=== PATIENT | male | born 1955 | race Caucasian/White ===

== ENCOUNTER 2017-07-05 23:26 | Inpatient (IN) | payer MEDICAID ==
[~2017-07-05] VITALS: Ht 188 cm; Wt 72.6 kg
[~2017-07-05 23:26] MED LIST: ACET-3161 PO; CIPRO; DOXYCYCLINE; ENEMA; LEVO500T2 PO
[2017-07-05] MEDS ORDERED: FAMOTIDINE 20MG/2ML VIAL IV STA (23:50)
[2017-07-05] MEDS ORDERED: MORPHINE SULFATE 4 MG/ML CPJ (NOT FOR IM USE) IV STA (23:50)
[2017-07-05] MEDS ORDERED: SODIUM CHLORIDE 0.9% 1,000 ML IV ONE (23:50)
[2017-07-05] MEDS ORDERED: ONDANSETRON HCL 4MG/2ML VIAL IV STA (23:50)
[2017-07-06] VITALS (79 sets, daily range): BP systolic 94–143; BP diastolic 57–92
[2017-07-06] MEDS ORDERED: INSULIN REGULAR (HUMULIN R) 300UNITS/3ML IV ONE
[2017-07-06] MEDS ORDERED: SODIUM CHLORIDE 0.9% 1000ML BAG (SEPSIS BOLUS) IV ONE
[2017-07-06] MEDS ORDERED: PANTOPRAZOLE SODIUM 40 MG/VIAL IV STA
[2017-07-06] MEDS ORDERED: FAMOTIDINE 20MG/2ML VIAL IV STA
[2017-07-06] MEDS ORDERED: OCTREOTIDE ACETATE 50 MCG/ML 1ML IV STA
[2017-07-06 00:39] LABS: INR 2.6; PARTIAL THROMBOPLASTIN TIME 24.1 sec (23.4-31.0); PROTHROMBIN TIME 26.5 sec (9.4-11.6)
[2017-07-06 00:42] LABS: BASOPHILS % 0.1 % (0.0-2.0); LYMPHOCYTES % 7.8 % (20.0-50.0); MEAN CORPUSCULAR HEMOGLOBIN 31.9 pg (28.0-32.0); MEAN CORPUSCULAR VOLUME 104.5 fL (80.0-94.0); MEAN PLATELET VOLUME 10.2 fl (7.4-10.4); MONOCYTES % 5.4 % (2.0-8.0); NEUTROPHILS % 86.7 % (40.0-76.0); PLATELET 238 x1000/uL (130-400); RED BLOOD CELL COUNT 1.23 mill/uL (4.7-6.1); RED CELL DISTRIBUTION WIDTH 20.2 % (11.6-14.6)
[2017-07-06 00:44] LABS: HEMATOCRIT. 12.9 % (42.0-52.0)
[2017-07-06 00:45] LABS: HEMOGLOBIN. 3.9 g/dL (14.0-18.0)
[2017-07-06 00:46] LABS: CHLORIDE 96 mEq/L (98-107); ETHANOL BLOOD < 10 mg/dL; TROPONIN I 0.03 ng/mL (0.00-0.04)
[2017-07-06 00:57] LABS: BETA HYDROXYBUTYRATE 5.9 mMol/L (0.0-0.3)
[2017-07-06 01:03] LABS: CARBON DIOXIDE 9 mEq/L (21-32)
[2017-07-06 02:20] LABS: PHOSPHORUS 7.2 mg/dL (2.5-4.9)
[2017-07-06] MEDS ORDERED: INSULIN REGULAR (DRIP) 100 UNITS in SODIUM CHLORIDE 0.9% 99 ML IV PRN ×2 (02:30→13:15)
[2017-07-06] MEDS ORDERED: DIPHENHYDRAMINE 50MG/ML VIAL IV PRN (02:30)
[2017-07-06 02:45] LABS: BG FRACTION INSPIRED OXYGEN 36; BG HCO3 ACT 3.2 mmol/L (22.0-26.0); BG PCO2 9.9 mmHg (35.0-45.0); BG PH 7.122 (7.350-7.450); BG SAMPLE SITE RIGHT BRACHIAL; BG TOTAL HEMOGLOBIN < 4.5 g/dL (12.0-18.0); BG VENT MODE NASAL CANNULA
[2017-07-06] MEDS ORDERED: INSULIN REGULAR (DRIP) 100 UNITS in SODIUM CHLORIDE 0.9% 99 ML IV SCH (03:00)
[2017-07-06] MEDS ORDERED: SODIUM BICARBONATE 8.4% 1 MEQ/ML 50ML SYR IV ONE (03:00)
[2017-07-06 04:06] LABS: PHOSPHORUS 7.1 mg/dL (2.5-4.9)
[2017-07-06] MEDS ORDERED: SODIUM CHLORIDE 0.9% 1,000 ML IV SCH (06:30)
[2017-07-06 10:23] LABS: INR 2.6; PROTHROMBIN TIME 27.3 sec (9.4-11.6)
[2017-07-06 10:41] LABS: PHOSPHORUS 2.1 mg/dL (2.5-4.9)
[2017-07-06] MEDS: PANTOPRAZOLE SODIUM 40 MG/VIAL IV SCH ×2 (10:42→20:33)
[2017-07-06] MEDS ORDERED: DEXT 5%/0.45% NACL 1000ML 1,000 ML IV SCH (12:45)
[2017-07-06] MEDS ORDERED: INSULIN REGULAR (DRIP) 100 UNITS in SODIUM CHLORIDE 0.9% 100 ML IV SCH ×7 (13:18→18:00)
[2017-07-06] MEDS ORDERED: DEXTROSE 50% WATER 50ML SYRINGE IV PRN ×2 (13:30)
[2017-07-06] MEDS ORDERED: MAGNESIUM 2 G PREMIX 50 ML IV NR (14:00)
[2017-07-06] MEDS ORDERED: KCL 20MEQ/100ML PREMIX 100 ML IV NR (14:00)
[2017-07-06] MEDS: BLOOD SUGAR DIAGNOSTIC STRIP TEST SCH ×11 (14:09→23:48)
[2017-07-06 15:04] LABS: BASOPHILS % 0.2 % (0.0-2.0); HEMATOCRIT. 21.7 % (42.0-52.0); LYMPHOCYTES % 8.1 % (20.0-50.0); MEAN CORPUSCULAR HEMOGLOBIN 30.6 pg (28.0-32.0); MEAN CORPUSCULAR VOLUME 87.7 fL (80.0-94.0); MEAN PLATELET VOLUME 9.3 fl (7.4-10.4); MONOCYTES % 3.3 % (2.0-8.0); NEUTROPHILS % 88.4 % (40.0-76.0); PLATELET 108 x1000/uL (130-400); RED BLOOD CELL COUNT 2.47 mill/uL (4.7-6.1)
[2017-07-06 15:15] LABS: PHOSPHORUS 2.5 mg/dL (2.5-4.9)
[2017-07-06 15:19] LABS: HEMOGLOBIN. 7.6 g/dL (14.0-18.0)
[2017-07-06] MEDS: ONDANSETRON HCL 4MG/2ML VIAL IV PRN (15:22)
[2017-07-06] MEDS ORDERED: POTASSIUM PHOS,M-BASIC-D-BASIC 15 MMOL in DEXT 5% WATER 245 ML IV NR (16:00)
[2017-07-06] MEDS ORDERED: SODIUM CHLORIDE 0.9% 10ML VIAL ONE (16:03)
[2017-07-06] MEDS ORDERED: SIMETHICONE 40 MG/0.6 ML 30ML ONE (16:03)
[2017-07-06] MEDS ORDERED: DEXT 5%/0.45% NACL KCL 20MEQ/L 1,000 ML IV SCH (21:00)
[2017-07-06] MEDS ORDERED: SORBITOL 70% SOLN 30ML PO NR (21:30)
[2017-07-07] VITALS (88 sets, daily range): BP systolic 98–149; BP diastolic 49–87
[2017-07-07] MEDS: BLOOD SUGAR DIAGNOSTIC STRIP TEST SCH ×11 (00:30→10:30)
[2017-07-07 05:41] LABS: CARBON DIOXIDE 26 mEq/L (21-32); CHLORIDE 111 mEq/L (98-107); PHOSPHORUS 1.7 mg/dL (2.5-4.9)
[2017-07-07 05:47] LABS: BASOPHILS % 0.1 % (0.0-2.0); EOSINOPHILS % 0.1 % (0.0-5.0); HEMATOCRIT. 26.4 % (42.0-52.0); HEMOGLOBIN. 9.3 g/dL (14.0-18.0); MEAN CORPUSCULAR HEMOGLOBIN 29.7 pg (28.0-32.0); MEAN CORPUSCULAR VOLUME 84.6 fL (80.0-94.0); MEAN PLATELET VOLUME 9.4 fl (7.4-10.4); MONOCYTES % 5.3 % (2.0-8.0); NEUTROPHILS % 85.5 % (40.0-76.0); PLATELET 90 x1000/uL (130-400); RED BLOOD CELL COUNT 3.12 mill/uL (4.7-6.1); RED CELL DISTRIBUTION WIDTH 16.1 % (11.6-14.6)
[2017-07-07] MEDS ORDERED: SORBITOL 70% SOLN 30ML PO NR (06:00)
[2017-07-07] MEDS ORDERED: NA PHOS,M-B/NA PHOS,DI-BA ENEMA 118ML PR NR (08:00)
[2017-07-07] MEDS ORDERED: KCL 20MEQ/100ML PREMIX 100 ML IV ONE ×2 (08:00→09:00)
[2017-07-07] MEDS ORDERED: POTASSIUM CHLORIDE INJ 40 MEQ in SODIUM CHLORIDE 0.9% 250 ML IV NR ×2 (09:00→13:00)
[2017-07-07] MEDS ORDERED: DEXT 5%/0.45% NACL KCL 40MEQ/L 1,000 ML IV SCH (09:00)
[2017-07-07] MEDS: PANTOPRAZOLE SODIUM 40 MG/VIAL IV SCH ×2 (09:19→20:16)
[2017-07-07] MEDS ORDERED: POTASSIUM CHLORIDE 20MEQ/PACKET PO NR (09:30)
[2017-07-07] MEDS ORDERED: FENTANYL CITRATE/PF 50MCG/ML 2ML VIAL ONE (11:18)
[2017-07-07] MEDS ORDERED: MIDAZOLAM HCL 5 MG/5 ML VIAL ONE (11:18)
[2017-07-07] MEDS ORDERED: MIDAZOLAM HCL 2 MG/2 ML VIAL IV PRN (11:37)
[2017-07-07] MEDS ORDERED: POTASSIUM PHOS,M-BASIC-D-BASIC 20 MMOL in DEXT 5% WATER 243.3333 ML IV NR (11:45)
[2017-07-07] MEDS ORDERED: DEXTROSE 50% WATER 50ML SYRINGE IV PRN (13:30)
[2017-07-07] MEDS: SODIUM CHLORIDE 0.9% 1,000 ML IV SCH (14:19)
[2017-07-07] MEDS ORDERED: INSULIN DETEMIR UD 100 UNITS/ML SYR SUBCUT NR (14:30)
[2017-07-07] MEDS ORDERED: OCTREOTIDE ACETATE 50 MCG/ML 1ML IV NR (15:00)
[2017-07-07] MEDS: OCTREOTIDE 1,000 MCG in SODIUM CHLORIDE 0.9% 100 ML IV PRN (15:02)
[2017-07-07] MEDS: INSULIN LISPRO 100 UNITS/ML SUBCUT SCH ×2 (18:05→21:00)
[2017-07-07] MEDS ORDERED: MORPHINE SULFATE 4 MG/ML CPJ (NOT FOR IM USE) IV PRN (20:30)
[2017-07-08] VITALS (20 sets, daily range): BP systolic 100–129; BP diastolic 64–85
[2017-07-08 06:15] LABS: BASOPHILS % 0.1 % (0.0-2.0); EOSINOPHILS % 0.1 % (0.0-5.0); HEMATOCRIT. 25.8 % (42.0-52.0); HEMOGLOBIN. 9.2 g/dL (14.0-18.0); LYMPHOCYTES % 11.1 % (20.0-50.0); MEAN CORPUSCULAR VOLUME 84.3 fL (80.0-94.0); MEAN PLATELET VOLUME 9.5 fl (7.4-10.4); MONOCYTES % 4.8 % (2.0-8.0); NEUTROPHILS % 83.9 % (40.0-76.0); PLATELET 95 x1000/uL (130-400); RED BLOOD CELL COUNT 3.06 mill/uL (4.7-6.1); RED CELL DISTRIBUTION WIDTH 16.5 % (11.6-14.6)
[2017-07-08 06:48] LABS: CARBON DIOXIDE 26 mEq/L (21-32); CHLORIDE 108 mEq/L (98-107)
[2017-07-08 06:56] LABS: HEPATITIS B SURFACE ANTIGEN NEGATIVE
[2017-07-08] MEDS: INSULIN LISPRO 100 UNITS/ML SUBCUT SCH ×5 (07:00→21:00)
[2017-07-08 07:25] LABS: HEPATITIS B CORE AB IGM NEGATIVE
[2017-07-08] MEDS: PANTOPRAZOLE SODIUM 40 MG/VIAL IV SCH ×2 (08:51→21:02)
[2017-07-08] MEDS: POTASSIUM CHLORIDE 20MEQ/PACKET PO SCH ×3 (08:51→12:56)
[2017-07-08] MEDS: SODIUM CHLORIDE 0.9% 1,000 ML IV SCH ×2 (08:52→22:09)
[2017-07-08] MEDS: OCTREOTIDE 1,000 MCG in SODIUM CHLORIDE 0.9% 100 ML IV PRN (09:20)
[2017-07-08] MEDS: INSULIN DETEMIR UD 100 UNITS/ML SYR SUBCUT SCH (10:54)
[2017-07-08] MEDS ORDERED: POTASSIUM CHLORIDE INJ 40 MEQ in DEXT 5% WATER 500 ML IV NR (11:00)
[2017-07-08 15:13] LABS: INR 1.3; PARTIAL THROMBOPLASTIN TIME 26.8 sec (23.4-31.0); PROTHROMBIN TIME 13.6 sec (9.4-11.6)
[2017-07-08 15:15] LABS: AMMONIA 84 uMol/L (<32)
[2017-07-09] VITALS (11 sets, daily range): BP systolic 98–114; BP diastolic 64–81
[2017-07-09] MEDS: OCTREOTIDE 1,000 MCG in SODIUM CHLORIDE 0.9% 100 ML IV PRN (04:52)
[2017-07-09 06:09] LABS: INR 1.3; PROTHROMBIN TIME 13.5 sec (9.4-11.6)
[2017-07-09 06:24] LABS: BASOPHILS % 0.2 % (0.0-2.0); EOSINOPHILS % 1.9 % (0.0-5.0); HEMATOCRIT. 23.1 % (42.0-52.0); HEMOGLOBIN. 8.3 g/dL (14.0-18.0); LYMPHOCYTES % 18.9 % (20.0-50.0); MEAN CORPUSCULAR HEMOGLOBIN 30.5 pg (28.0-32.0); MEAN CORPUSCULAR VOLUME 85.1 fL (80.0-94.0); MEAN PLATELET VOLUME 9.4 fl (7.4-10.4); MONOCYTES % 7.4 % (2.0-8.0); NEUTROPHILS % 71.6 % (40.0-76.0); PLATELET 66 x1000/uL (130-400); RED BLOOD CELL COUNT 2.71 mill/uL (4.7-6.1); RED CELL DISTRIBUTION WIDTH 15.5 % (11.6-14.6)
[2017-07-09] MEDS: INSULIN LISPRO 100 UNITS/ML SUBCUT SCH ×4 (08:00→21:00)
[2017-07-09] MEDS: PANTOPRAZOLE SODIUM 40 MG/VIAL IV SCH ×2 (08:55→20:55)
[2017-07-09] MEDS: INSULIN DETEMIR UD 100 UNITS/ML SYR SUBCUT SCH (11:54)
[2017-07-09 15:33] LABS: HEPATITIS A AB IGM NEGATIVE (NEGATIVE)
[2017-07-09 16:59] LABS: CARBON DIOXIDE 23 mEq/L (21-32); CHLORIDE 107 mEq/L (98-107)
[2017-07-09] MEDS: LACTULOSE 20G/30ML UDC PO SCH (18:17)
[2017-07-09] MEDS: ONDANSETRON HCL 4MG/2ML VIAL IV PRN (23:04)
[2017-07-09] MEDS: ZOLPIDEM TARTRATE 5MG TABLET PO PRN (23:06)
[2017-07-10] VITALS (10 sets, daily range): BP systolic 90–110; BP diastolic 59–75
[2017-07-10 07:02] LABS: INR 1.2; PARTIAL THROMBOPLASTIN TIME 25.4 sec (23.4-31.0); PROTHROMBIN TIME 12.8 sec (9.4-11.6)
[2017-07-10 07:13] LABS: AMMONIA 89 uMol/L (<32)
[2017-07-10 07:37] LABS: BASOPHILS % 0.1 % (0.0-2.0); EOSINOPHILS % 1.6 % (0.0-5.0); HEMATOCRIT. 24.7 % (42.0-52.0); HEMOGLOBIN. 8.6 g/dL (14.0-18.0); LYMPHOCYTES % 20.5 % (20.0-50.0); MEAN CORPUSCULAR VOLUME 86.1 fL (80.0-94.0); MEAN PLATELET VOLUME 9.4 fl (7.4-10.4); MONOCYTES % 10.4 % (2.0-8.0); NEUTROPHILS % 67.4 % (40.0-76.0); PLATELET 89 x1000/uL (130-400); RED BLOOD CELL COUNT 2.87 mill/uL (4.7-6.1); RED CELL DISTRIBUTION WIDTH 15.6 % (11.6-14.6)
[2017-07-10] MEDS: INSULIN LISPRO 100 UNITS/ML SUBCUT SCH ×4 (08:00→20:41)
[2017-07-10 08:26] LABS: CHLORIDE 107 mEq/L (98-107)
[2017-07-10 08:37] LABS: CARBON DIOXIDE 25 mEq/L (21-32)
[2017-07-10] MEDS: INSULIN DETEMIR UD 100 UNITS/ML SYR SUBCUT SCH (10:00)
[2017-07-10] MEDS: LACTULOSE 20G/30ML UDC PO SCH (10:09)
[2017-07-10] MEDS: PANTOPRAZOLE SODIUM 40 MG/VIAL IV SCH ×2 (10:42→20:41)
[2017-07-10] MEDS: BLOOD SUGAR DIAGNOSTIC STRIP TEST SCH ×3 (12:01→20:41)
[2017-07-10] MEDS ORDERED: SODIUM CHLORIDE 0.9% 10ML VIAL ONE (13:18)
[2017-07-10] MEDS ORDERED: SIMETHICONE 40 MG/0.6 ML 30ML ONE (13:18)
[2017-07-10] MEDS ORDERED: MIDAZOLAM HCL 5 MG/5 ML VIAL ONE (15:06)
[2017-07-10] MEDS ORDERED: FENTANYL CITRATE/PF 50MCG/ML 2ML VIAL ONE (15:07)
[2017-07-10] MEDS ORDERED: MIDAZOLAM HCL 2 MG/2 ML VIAL IV PRN (15:16)
[2017-07-10] MEDS ORDERED: FENTANYL CITRATE/PF 50MCG/ML 2ML VIAL IV PRN (15:18)
[2017-07-10] MEDS: ZOLPIDEM TARTRATE 5MG TABLET PO PRN (22:07)
[2017-07-11] VITALS (11 sets, daily range): BP systolic 86–109; BP diastolic 54–84
[2017-07-11] MEDS: BLOOD SUGAR DIAGNOSTIC STRIP TEST SCH ×2 (07:38→12:34)
[2017-07-11] MEDS: INSULIN LISPRO 100 UNITS/ML SUBCUT SCH ×2 (08:12→13:08)
[2017-07-11] MEDS: PANTOPRAZOLE SODIUM 40 MG/VIAL IV SCH (08:12)
[2017-07-11] MEDS: INSULIN DETEMIR UD 100 UNITS/ML SYR SUBCUT SCH (11:14)
[2017-07-11] MEDS ORDERED: INSULIN DETEMIR UD 100 UNITS/ML SYR SUBCUT SCH (13:30)
[2017-07-11] MEDS ORDERED: METFORMIN HCL 500MG TABLET PO SCH (18:00)
== END 2017-07-11 17:30 | disposition home or self-care (01) | DRG 950 ==
LOC: ER 23:26 → MICUSO 07-06 01:12 → EDBEDREQ 07-06 01:15 → EDBEDREQTM 07-06 01:15 → EDBEDREQSVC 07-06 01:15 → ENRESERV 07-06 03:02 → 5EST 07-08 12:25
PROVIDERS: ADMIT Internal Medicine; ATTEND Internal Medicine
PROC: 30233L1 Transfusion of Nonautologous Fresh Plasma into Peripheral Vein, Percutaneous Approach (ICD-10-PCS; principal; 2017-07-06)
PROC: 30233N1 Transfusion of Nonautologous Red Blood Cells into Peripheral Vein, Percutaneous Approach (ICD-10-PCS; 2017-07-06)
PROC: 02HV33Z Insertion of Infusion Device into Superior Vena Cava, Percutaneous Approach (ICD-10-PCS; 2017-07-06)
PROC: B548ZZA Ultrasonography of Superior Vena Cava, Guidance (ICD-10-PCS; 2017-07-06)
PROC: 30233K1 Transfusion of Nonautologous Frozen Plasma into Peripheral Vein, Percutaneous Approach (ICD-10-PCS; 2017-07-06)
PROC: 30233N1 Transfusion of Nonautologous Red Blood Cells into Peripheral Vein, Percutaneous Approach (ICD-10-PCS; 2017-07-06)
PROC: 0DBN8ZZ Excision of Sigmoid Colon, Via Natural or Artificial Opening Endoscopic (ICD-10-PCS; 2017-07-07)
PROC: 06L34CZ Occlusion of Esophageal Vein with Extraluminal Device, Percutaneous Endoscopic Approach (ICD-10-PCS; 2017-07-10)
PROC: 0W9G3ZZ Drainage of Peritoneal Cavity, Percutaneous Approach (ICD-10-PCS; 2017-07-10)
DX: K74.60 Unspecified cirrhosis of liver (principal); G93.41 Metabolic encephalopathy; E43 Unspecified severe protein-calorie malnutrition; E13.10 Other specified diabetes mellitus with ketoacidosis without coma; N17.9 Acute kidney failure, unspecified; C25.9 Malignant neoplasm of pancreas, unspecified; D68.9 Coagulation defect, unspecified; K92.2 Gastrointestinal hemorrhage, unspecified; I85.00 Esophageal varices without bleeding; D69.6 Thrombocytopenia, unspecified; E86.0 Dehydration; K52.9 Noninfective gastroenteritis and colitis, unspecified; D64.9 Anemia, unspecified; D69.59 Other secondary thrombocytopenia; E78.00 Pure hypercholesterolemia, unspecified; E78.5 Hyperlipidemia, unspecified; I10 Essential (primary) hypertension; K31.89 Other diseases of stomach and duodenum; K44.9 Diaphragmatic hernia without obstruction or gangrene; K64.8 Other hemorrhoids; K76.6 Portal hypertension; N40.0 Benign prostatic hyperplasia without lower urinary tract symptoms; R18.8 Other ascites; Z83.3 Family history of diabetes mellitus; Z92.21 Personal history of antineoplastic chemotherapy; Z68.20 Body mass index [BMI] 20.0-20.9, adult
CPT/HCPCS: 36415; 36569; 36600; 49083; 71010; 74176; 76705; 76937; 80048; 80053; 82010; 82105; 82140; 82270; 82375; 82805; 82962; 83605; 83690; 83735; 84100; 84484; 85025; 85044; 85610; 85730; 86705; 86709; 86803; 86850; 86900; 86920; 86927; 87340; 88305; 93005; 96361; 96374; 96375; 96376; 99152; 99153; 99291; A4216; C1725; C9113; G0482; J1815; J2250; J2270; J2354; J2405; J3010; J3475; J3480; J3490; J7030; J7040; J7050; J7060; P9016; P9017; A4315

== ENCOUNTER 2017-08-04 22:42 | Inpatient (IN) | payer MEDICAID ==
[~2017-08-04] VITALS: Ht 182.9 cm; Wt 72.6 kg
[~2017-08-04 22:42] MED LIST changes: -CIPRO; -DOXYCYCLINE; -ENEMA
[2017-08-04] MEDS ORDERED: MORPHINE SULFATE 4 MG/ML CPJ (NOT FOR IM USE) IV STA (23:51)
[2017-08-04] MEDS ORDERED: ONDANSETRON HCL 4MG/2ML VIAL IV STA (23:51)
[2017-08-05 00:15] LABS: BASOPHILS % 0.4 % (0.0-2.0); EOSINOPHILS % 0.6 % (0.0-5.0); HEMATOCRIT. 27.9 % (42.0-52.0); HEMOGLOBIN. 9.3 g/dL (14.0-18.0); LYMPHOCYTES % 19.3 % (20.0-50.0); MEAN CORPUSCULAR HEMOGLOBIN 31.9 pg (28.0-32.0); MEAN CORPUSCULAR VOLUME 95.4 fL (80.0-94.0); MEAN PLATELET VOLUME 8.4 fl (7.4-10.4); MONOCYTES % 9.1 % (2.0-8.0); NEUTROPHILS % 70.6 % (40.0-76.0); PLATELET 246 x1000/uL (130-400); RED BLOOD CELL COUNT 2.92 mill/uL (4.7-6.1); RED CELL DISTRIBUTION WIDTH 19.2 % (11.6-14.6)
[2017-08-05 00:24] LABS: INR 1.4; PARTIAL THROMBOPLASTIN TIME 28.8 sec (23.4-31.0); PROTHROMBIN TIME 14.6 sec (9.4-11.6)
[2017-08-05 00:26] LABS: CHLORIDE 100 mEq/L (98-107)
[2017-08-05] MEDS ORDERED: SODIUM CHLORIDE 0.9% 1,000 ML IV SCH (00:33)
[2017-08-05 00:34] LABS: CARBON DIOXIDE 25 mEq/L (21-32)
[2017-08-05] MEDS ORDERED: INSULIN REGULAR (HUMULIN R) 300UNITS/3ML SUBCUT ONE (01:00)
[2017-08-05 05:50] VITALS: BP 93/60
[2017-08-05 08:00] VITALS: BP 94/60
[2017-08-05] MEDS ORDERED: METF500T4 PO (08:36)
[2017-08-05] MEDS ORDERED: LOV40 SQ (08:36)
[2017-08-05] MEDS ORDERED: FURO20TA4 PO (09:19)
[2017-08-05] MEDS ORDERED: DOCU-150 PO (09:19)
[2017-08-05] MEDS ORDERED: SIMV40TA5 PO (09:19)
[2017-08-05] MEDS ORDERED: CIPR-263 PO (09:19)
[2017-08-05] MEDS ORDERED: SENN8.6T21 PO (09:19)
[2017-08-05] MEDS ORDERED: SPIR50TA26 PO (09:19)
[2017-08-05] MEDS ORDERED: INFLUENZA VIRUS VACCINE 0.5ML SYR IM ONE (09:30)
[2017-08-05] MEDS ORDERED: HYDROMORPHONE HCL/PF 2MG/ML CPJ IV PRN (10:45)
[2017-08-05] MEDS ORDERED: ONDANSETRON HCL 4MG/2ML VIAL IV PRN (10:45)
[2017-08-05] MEDS ORDERED: DEXTROSE 50% WATER 50ML SYRINGE IV PRN (10:45)
[2017-08-05 12:00] VITALS: BP 94/52
[2017-08-05] MEDS: BLOOD SUGAR DIAGNOSTIC STRIP TEST SCH ×3 (12:20→21:35)
[2017-08-05] MEDS: ENOXAPARIN 80MG/0.8ML SYR SUBCUT SCH ×2 (12:35→21:38)
[2017-08-05] MEDS: INSULIN LISPRO 100 UNITS/ML SUBCUT SCH ×3 (13:19→21:49)
[2017-08-05 16:00] VITALS: BP 89/57
[2017-08-05 20:00] VITALS: BP 92/64
[2017-08-06] VITALS: BP 103/61
[2017-08-06 04:00] VITALS: BP 95/58
[2017-08-06 06:31] LABS: HEMATOCRIT 27.3 % (42.0-52.0); HEMOGLOBIN 9.2 g/dL (14.0-18.0); MEAN CORPUSCULAR HEMOGLOBIN 32.1 pg (28.0-32.0); MEAN CORPUSCULAR VOLUME 95.4 fL (80.0-94.0); PLATELET 227 x1000/uL (130-400); RED BLOOD CELL COUNT 2.86 mill/uL (4.7-6.1)
[2017-08-06 06:35] LABS: INR 1.3; PARTIAL THROMBOPLASTIN TIME 27.2 sec (23.4-31.0); PROTHROMBIN TIME 13.7 sec (9.4-11.6)
[2017-08-06] MEDS: BLOOD SUGAR DIAGNOSTIC STRIP TEST SCH ×4 (07:00→22:42)
[2017-08-06 07:39] LABS: CARBON DIOXIDE 26 mEq/L (21-32); CHLORIDE 105 mEq/L (98-107)
[2017-08-06 08:00] VITALS: BP 97/55
[2017-08-06] MEDS: INSULIN LISPRO 100 UNITS/ML SUBCUT SCH ×4 (08:36→22:56)
[2017-08-06] MEDS: ENOXAPARIN 80MG/0.8ML SYR SUBCUT SCH (08:37)
[2017-08-06 12:00] VITALS: BP 98/61
[2017-08-06 16:00] VITALS: BP 92/62
[2017-08-06] MEDS ORDERED: HYDROCODONE/ACETAMINOPHEN 5/325MG TABLET PO PRN (17:45)
[2017-08-06] MEDS: METFORMIN HCL 500MG TABLET PO SCH (18:46)
[2017-08-06 20:00] VITALS: BP 100/66
[2017-08-06] MEDS ORDERED: INSULIN DETEMIR UD 100 UNITS/ML SYR SUBCUT SCH (22:00)
[2017-08-07] VITALS: BP 101/56
[2017-08-07 04:00] VITALS: BP 91/56
[2017-08-07] MEDS: BLOOD SUGAR DIAGNOSTIC STRIP TEST SCH ×2 (07:38→11:33)
[2017-08-07] MEDS: INSULIN LISPRO 100 UNITS/ML SUBCUT SCH ×2 (07:50→13:39)
[2017-08-07 08:00] VITALS: BP 96/60
[2017-08-07] MEDS ORDERED: LIDOCAINE HCL 1% 20ML VIAL (Pyxis) INJ ONE ×2 (09:05→10:11)
[2017-08-07] MEDS: METFORMIN HCL 500MG TABLET PO SCH (11:30)
[2017-08-07 12:00] VITALS: BP 98/65
[2017-08-07 13:59] VITALS: BP 98/65
== END 2017-08-07 14:55 | disposition home or self-care (01) | DRG 264 ==
LOC: ER 22:42 → OBSVTOIN 08-05 00:34 → INTOOBSV 08-05 00:34 → 6EST 08-05 00:34 → EDBEDREQ 08-05 00:38 → ENRESERV 08-05 00:51
PROVIDERS: ADMIT Hospitalist; ATTEND Hospitalist
PROC: 0W9G3ZZ Drainage of Peritoneal Cavity, Percutaneous Approach (ICD-10-PCS; principal; 2017-08-07)
PROC: 0W9G3ZX Drainage of Peritoneal Cavity, Percutaneous Approach, Diagnostic (ICD-10-PCS; 2017-08-07)
DX: C25.9 Malignant neoplasm of pancreas, unspecified (principal); D68.9 Coagulation defect, unspecified; R18.8 Other ascites; I85.00 Esophageal varices without bleeding; K76.6 Portal hypertension; D69.59 Other secondary thrombocytopenia; K74.60 Unspecified cirrhosis of liver; D64.9 Anemia, unspecified; I10 Essential (primary) hypertension; E11.9 Type 2 diabetes mellitus without complications; K44.9 Diaphragmatic hernia without obstruction or gangrene; E78.5 Hyperlipidemia, unspecified; Z79.2 Long term (current) use of antibiotics; Z79.899 Other long term (current) drug therapy; Z90.49 Acquired absence of other specified parts of digestive tract; Z86.711 Personal history of pulmonary embolism; Z87.891 Personal history of nicotine dependence; Z92.21 Personal history of antineoplastic chemotherapy
CPT/HCPCS: 36415; 49083; 76705; 80048; 80053; 80076; 82270; 82962; 83690; 85025; 85027; 85610; 85730; 87070; 87205; 89050; 90686; 96374; 96375; 99285; J1650; J1815; J2270; J2405; J3490; J7030